=== PATIENT | female | born 1960 | race Caucasian/White ===

== ENCOUNTER 2018-10-02 15:14 | Emergency (ER) | payer SELFPAY ==
[~2018-10-02 15:14] MED LIST: ISOVUE-370 76%-LOCM 1 ML ONE
[2018-10-02 16:01] LABS: Hemoglobin 14.3 g/dL (12.0-16.0); Mean Corpuscular HGB CONC 32.9 g/dL (32.0-36.0); Mean Corpuscular Hemoglobin 31.1 pg (27.0-31.0); Mean Corpuscular Volume 94.5 fL (78.0-98.0); Mean Platelet Volume 7.5 fL (7.4-10.4); Platelet Count 323 thou/uL (130-400); RBC Distribution Width 12.8 % (11.5-14.5); Red Blood Cell (RBC) Count 4.61 mill/uL (4.20-5.40); White Blood Cell (WBC) Count 9.5 thou/uL (4.8-10.8)
[2018-10-02 16:26] LABS: Band 6 % (5-11); Eosinophils 3 % (0-10); Lymphocytes 27 % (21-51); MDiff Complete? YES; Monocytes 3 % (0-10); Neutrophil 61 % (42-75); Platelet Morphology Comment Appears Adequate; RBC Morphology Normal
[2018-10-02 16:27] LABS: ALT (SGPT) 14 U/L (8-55); AST (SGOT) 20 U/L (5-34); Albumin 3.9 g/dL (3.5-5.0); Alkaline Phosphatase 83 U/L (40-150); Anion Gap 15 mmol/L (10-20); BUN (Urea Nitrogen) 5 mg/dL (9.8-20.1); Bilirubin, Total 0.2 mg/dL (0.2-1.2); Calc. Creatinine Clearance 0 mL/min (70-130); Calcium 9.6 mg/dL (7.8-10.44); Carbon Dioxide 26 mmol/L (22-29); Chloride 100 mmol/L (98-107); Estimated GFR-MDRD 75; Globulin 3.4 g/dL (2.4-3.5); Glucose 167 mg/dL (70-105); Potassium 3.5 mmol/L (3.5-5.1); Protein, Total 7.3 g/dL (6.0-8.3); Sodium 137 mmol/L (136-145)
--- NOTE | 2018-10-02 16:40 | RAD ---
Chest one view HISTORY: Pneumonia. Cough. COMPARISON: 08/10/2018. FINDINGS: Cardiac silhouette is magnified and is normal in size. Pulmonary vasculature is unremarkabl e. Mediastinum is midline. No lobar consolidation or evidence of pneumothorax. IMPRESSION: No active cardiopulmonary disease are demonstrated.
[2018-10-02 16:53] LABS: Bilirubin Negative (Negative); Blood, Urine Trace (Negative); Clarity CLOUDY (Clear); Glucose, Urine (Dipstick) Negative (Negative); Leukocyte Negative (Negative); Nitrite Negative (Negative); Protein, Urine (Dipstick) Negative (Neg-Trace); Specific Gravity, Urine 1.009 (1.002-1.036); Urobilinogen 0.2 mg/dL (0.2-1.0); pH, Urine 5.5 (5.0-9.0)
[2018-10-02 17:00] LABS: Bacteria/HPF None Seen HPF (None Seen); Hyaline Casts/LPF 4-6 HYALINE CAST LPF (0-3 Hyaline); Pathc Cast-AUWi Flag 0.95 (0-2.49); RBC/HPF 0-3 HPF (0-3); WBC/HPF 0-3 HPF (0-3)
--- NOTE | 2018-10-02 18:08 | CT ---
CT PULMONARY ANGIOGRAM WITH IV CONTRAST AND 3D POST PROCESSING: History: Tachycardia, nausea, chest pain, elevated D-Dimer. FINDINGS: Comparison made to exam of 08-05-14. There is inadequate opacification of the pulmonary artery vasculature. The thoracic aorta is well opa cified without aneurysm or dissection. No filling defects are seen in the main pulmonary arteries to suggest central pulmonary embolism. The pulmonary artery arterial branches are otherwise not satisfac tory evaluated due to inadequate opacification. No pleural effusions are seen. There are mild reticular nodular infiltrates in the right upper and mi dlung zones and peripherally a patchy consolidation in the lateral segment of the right middle lobe. There are degenerative changes in the spine. Upper abdominal tomograms demonstrate a stable liver cyst and right adrenal adenoma since . IMPRESSION: 1. No evidence of thoracic aortic aneurysm or dissection. 2. Suboptimal opacification of the pulmonary arteries with no definite embolism in the main pulmonary arteries. Peripheral embolism cannot be excluded on this exam. 3. Right lung infiltrates. POS: AGATHA
== END 2018-10-02 19:10 | disposition home or self-care (01) ==
LOC: ERS 15:14
DX: J18.1 Lobar pneumonia, unspecified organism (principal); R00.0 Tachycardia, unspecified; I25.10 Atherosclerotic heart disease of native coronary artery without angina pectoris; E78.5 Hyperlipidemia, unspecified; I10 Essential (primary) hypertension; F17.210 Nicotine dependence, cigarettes, uncomplicated; Z79.899 Other long term (current) drug therapy; Z79.82 Long term (current) use of aspirin
CPT/HCPCS: 71045; 71275; 80053; 81003; 81015; 83605; 83880; 84484; 85025; 85379; 87040; 87804; 93005; 96360; 96361; Q9966

== ENCOUNTER 2019-10-29 10:16 | Outpatient (CLI) | payer OTHER ==
--- NOTE | 2019-10-29 11:04 | RAD ---
PA AND LATERAL CHEST: HISTORY: Cough, reactive airways disease. COMPARISON: 08/10/2018 study. FINDINGS: Heart size and mediastinum are within normal limits. Lungs appear clear of any infiltrative process. IMPRESSION: No active intrathoracic disease. POS: [facility]
== END 2019-10-29 10:17 | disposition home or self-care (01) ==
LOC: BICRAD 10:16
PROVIDERS: ATTEND Internal Medicine
DX: J45.40 Moderate persistent asthma, uncomplicated (principal)
CPT/HCPCS: 71046

== ENCOUNTER 2019-11-08 15:04 | Outpatient (CLI) | payer OTHER ==
--- NOTE | 2019-11-09 08:01 | MMO ---
Bilateral MAMMO Bilat Screen DDI+ANUP. CLINICAL HISTORY: Patient is 59 years old and is seen for screening. The patient has no family history of breast cancer. The patient has no personal history of cancer. VIEWS: The views performed were: bilateral craniocaudal with tomosynthesis and bilateral mediolateral oblique with tomosynthesis. FILMS COMPARED: The present examination has been compared to prior imaging studies performed at [facility] on 08/31/2016, and at [facility] on 05/09/2014 and 05/16/2014. This study has been interpreted with the assistance of computer-aided detection. MAMMOGRAM FINDINGS: There are scattered fibroglandular densities. There are stable benign appearing calcifications seen in both breasts. There are no suspicious masses, suspicious calcifications, or new areas of architectural distortion. IMPRESSION: THERE IS NO MAMMOGRAPHIC EVIDENCE OF MALIGNANCY. A ROUTINE FOLLOW-UP MAMMOGRAM IN 1 YEAR IS RECOMMENDED. THE RESULTS OF THIS EXAM WERE SENT TO THE PATIENT. ACR BI-RADS Category 2 - Benign finding MAMMOGRAPHY NOTE: 1. A negative mammogram report should not delay a biopsy if a dominant of clinically suspicious mass is present. 2. Approximately 10% to 15% of breast cancers are not detected by mammography. 3. Adenosis and dense breasts may obscure an underlying neoplasm. Reported by: BRENT CHAPMAN MD Electonically Signed: [id number]
== END 2019-11-08 15:05 | disposition home or self-care (01) ==
LOC: BICMAMMO 15:04
PROVIDERS: ATTEND Internal Medicine
DX: Z12.31 Encounter for screening mammogram for malignant neoplasm of breast (principal)
CPT/HCPCS: 77063; 77067

== ENCOUNTER 2020-05-09 15:12 | Outpatient (CLI) | payer OTHER ==
--- NOTE | 2020-05-09 15:26 | RAD ---
PA AND LATERAL VIEWS CHEST: HISTORY: Mild persistent asthma, uncomplicated. Shortness of breath. COMPARISON: 04/14/2020. FINDINGS: The heart size is borderline. The lungs are expanded without lobar consolidation, pneumothoraces, or pleural effusions. No acute osseous abnormalities are seen. Chronic parenchymal changes are again seen. The previously noted right lobe infiltrate has resolved in the interim. IMPRESSION: No radiographic evidence of acute cardiopulmonary process. POS: AH
== END 2020-05-09 15:13 | disposition home or self-care (01) ==
LOC: BICRAD 15:12
PROVIDERS: ATTEND Internal Medicine
DX: J45.30 Mild persistent asthma, uncomplicated (principal)
CPT/HCPCS: 71046

== ENCOUNTER 2020-06-11 22:25 | Inpatient (IN) | payer OTHER ==
[2020-06-12 00:43] LABS: SARS-CoV-2 NAA Rapid Test DETECTED (NotDetected)
[2020-06-12] MEDS ORDERED: Albuterol 200 PUFF (6.7GM INHALER) INH PRN (01:05)
--- NOTE | 2020-06-12 01:32 | HP ---
REASON FOR ADMISSION: Shortness of breath. HISTORY OF PRESENT ILLNESS: This is a 60-year-old female patient who is presenting with shortness of breath. History going back to approximately 2 months before her presentation, she tested positive for COVID-19. At that time, she was having shortness of breath and cough and she lost her taste and smell. Also she had diarrhea and moving forward to April 20, she still tested positive. She needed to test negative to go back to her work and on April 30, she tested negative, but was still having symptoms. Her test was considered as a false negative, but then tested negative again the next week and since then, she has been having good days and bad days according to the patient and for the past week and a half, she has been feeling well, back to her baseline until this past weekend she took care of her 2-year-old grandson who had a runny nose and appeared to be a bit sick. She started having a runny nose herself on Tuesday, which is approximately 4 days ago, and then her throat was sore. She did not develop a fever, but she became more and more short of breath and she presents today for that reason. She is also coughing and having headaches. In our emergency room, she was retested for COVID-19 and her test is now positive. PAST MEDICAL HISTORY: 1. COPD. 2. Coronary artery disease, status post stenting. 3. History of PE, on Eliquis. 4. High blood pressure. 5. High cholesterol. SOCIAL HISTORY: She continues to smoke and currently smoking 5 cigarettes a day, but has not smoked for the past 4 days. She cannot drink alcohol due to severe abdominal pain that follows drinking alcohol. ALLERGIES: TO PENICILLIN. FAMILY HISTORY: Her grandfather had heart disease. REVIEW OF SYSTEMS: All systems reviewed and except the above-mentioned shortness of breath, found to be negative. PHYSICAL EXAMINATION: GENERAL: Awake, alert, oriented, does not appear in distress. VITAL SIGNS: Her blood pressure is 120/85, heart rate of 92, saturating 95% on 2 L nasal cannula. HEENT: Head is nontraumatic, normocephalic. Pupils equal, reactive. Extraocular movements are intact. Nonicteric sclerae. Well-injected conjunctivae. Oral mucosa normal. Nasal mucosa normal. NECK: Supple. No adenopathy. No murmur. Thyroid is not palpable. Trachea is midline. No supraclavicular adenopathy. HEART: S1, S2 regular. No murmur. No gallops. No friction rubs. No displacement of PMI. LUNGS: Decreased air entry bilaterally. Diffuse expiratory wheezing bilaterally. ABDOMEN: Bowel sounds are positive. Nontender abdomen. No hepatosplenomegaly. EXTREMITIES: No lower extremity edema. No cyanosis. NEUROLOGIC: Cranial nerves 2-12 within normal limits. Normal motor function. Normal sensory function and reflexes. LABORATORY DATA: Blood work shows WBC of 8.8, hemoglobin 14.2, platelets of 292. Her D-dimer is 1.30. Sodium is 141, potassium 3.8, bicarb 26, BUN of 7, creatinine 0.83. Troponin less than 0.01. COVID-19 positive. IMAGING DATA: A CT of the chest shows no definite central pulmonary embolus demonstrated, limitation of the exam as above. Area of subsegmental volume loss in the lateral right middle lobe. Fatty liver. Left hepatic lobe cyst. Right adrenal adenoma. ASSESSMENT AND PLAN: This is a 60-year-old female patient, presenting with shortness of breath secondary to bronchitis. Underlying cause is most likely reinfection with COVID-19. Pulmonary: Patient will be on IV Solu-Medrol for her COPD exacerbation and this also will help with her comorbid reinfection. Also, she will be on inhalers and will have her on azithromycin as well and a cough suppressant in a.m. We will check ferritin, procalcitonin, CRP levels. For DVT prophylaxis, she will be on her Eliquis. Cardiac: The patient will be on home medication such as Plavix. I am still awaiting for the med rec to be done so I could reconcile it. Job ID: [id number]
[2020-06-12 03:03] VITALS: BMI 47.4
[2020-06-12] MEDS: Albuterol 200 PUFF (6.7GM INHALER) INH SCH ×4 (05:27→23:08)
[2020-06-12] MEDS: methylPREDNISolone Sod Succ 40 MG VIAL IVP SCH ×4 (05:28→23:08)
[2020-06-12] MEDS ORDERED: Promethazine DM 6.25-15mg/5ml 120 ML BOT PO PRN (06:42)
[2020-06-12] MEDS: Rosuvastatin 20 MG TAB PO SCH ×3 (08:53→20:49)
[2020-06-12] MEDS: Ascorbic Acid 500 mg Chewable Tablet PO SCH (08:54)
[2020-06-12] MEDS: Metoprolol Tartrate 25 MG TAB PO SCH ×2 (08:54→20:49)
[2020-06-12] MEDS: Clopidogrel Bisulfate 75 MG TAB PO SCH (08:54)
[2020-06-12] MEDS: Apixaban 5 MG TAB PO SCH ×2 (08:54→20:49)
[2020-06-12] MEDS ORDERED: MAG OX PO SCH (09:00)
[2020-06-12] MEDS ORDERED: CALCIUM CARB PO SCH (09:00)
[2020-06-12] MEDS ORDERED: [UNRECOGNIZED DRUG - OTHER] PO SCH (09:00)
[2020-06-12] MEDS ORDERED: Lisinopril 20 MG TAB PO SCH (09:00)
[2020-06-12] MEDS ORDERED: ZINC SULF PO SCH (09:00)
[2020-06-12] MEDS ORDERED: Lisinopril 10 MG TAB PO SCH ×2 (09:00→13:30)
[2020-06-12] MEDS ORDERED: Non-Formulary Item 1 EACH (Ascorbic Acid [Vitamin C] 1,000 MG Tablet) PO SCH (09:00)
[2020-06-12] MEDS ORDERED: Apixaban 5 MG TAB PO SCH (09:00)
[2020-06-12] MEDS: Acetaminophen 325 MG TAB PO PRN ×3 (09:10→19:24)
[2020-06-12] MEDS ORDERED: hydrALAZINE 20 MG/ML VIAL SLOW IVP PRN (13:19)
--- NOTE | 2020-06-12 13:19 | PDOC.HOSPP ---
- Subjective Encounter Date: 06/12/20 Encounter Time: 10:30 Subjective: Patient seen this morning she still have a productive cough and dyspnea on exertion she is also a little somewhat distressed with her presentation. - Objective Vital Signs & Weight: Vital Signs (12 hours) Temp Pulse Resp BP BP Pulse Ox 06/12/20 12:20 98.1 F 101 H 22 H 167/78 H 94 L 06/12/20 09:07 98 21 H 156/77 H 93 L 06/12/20 03:03 98.0 F 87 20 150/67 H 96 Weight Weight 250 lb 12.8 oz I&O: 06/11/20 06/12/20 06/13/20 06:59 06:59 06:59 Intake Total 490 Balance 490 Hospitalist ROS - Medication Medications: Active Medications Generic Name Dose Route Start Last Admin Trade Name Freq PRN Reason Stop Dose Admin Acetaminophen 650 mg 06/12/20 01:07 06/12/20 09:10 Acetaminophen 325 Mg Tab PO 650 mg Q4H PRN Administration Headache/Fever/Mild Pain (1-3) Albuterol Sulfate 2 puff 06/12/20 06:00 06/12/20 12:06 Albuterol 200 Puff (6.7gm Inhaler) INH 2 puff Q6HR ALIZE Administration Apixaban 5 mg 06/12/20 09:00 06/12/20 08:54 Apixaban 5 Mg Tab PO 5 mg BID ALIZE Administration Ascorbic Acid 1,000 mg 06/12/20 09:00 06/12/20 08:54 Ascorbic Acid 500 Mg Chewable Tablet PO 1,000 mg DAILY ALIZE Administration Clopidogrel Bisulfate 75 mg 06/12/20 09:00 06/12/20 08:54 Clopidogrel Bisulfate 75 Mg Tab PO 75 mg DAILY ALIZE Administration Lisinopril 5 mg 06/12/20 09:00 06/12/20 08:53 Lisinopril 20 Mg Tab PO 5 mg DAILY ALIZE Administration Methylprednisolone Sodium Succinate 40 mg 06/12/20 06:00 06/12/20 12:06 Methylprednisolone Sod Succ 40 Mg Vial IVP 40 mg Q6HR ALIZE Administration Metoprolol Tartrate 25 mg 06/12/20 09:00 06/12/20 08:54 Metoprolol Tartrate 25 Mg Tab PO 25 mg BID ALIZE Administration Pantoprazole Sodium 40 mg 06/12/20 09:00 06/12/20 08:54 Pantoprazole 40 Mg Tab PO 40 mg DAILY ALIZE Administration - Exam General Appearance: NAD, awake alert Eye: PERRL ENT: normocephalic atraumatic Neck: supple Heart: RRR Respiratory: CTAB Neurological: cranial nerve grossly intact, no focal deficits Psychiatric: normal affect, normal behavior, A&O x 3 Hosp A/P - Plan COVID-19 positive test (U07.1, COVID-19) with Acute Pneumonia (J12.89, Other viral pneumonia) (If respiratory failure or sepsis present, add as separate assessment) Hypoxia secondary to Covid pneumonia Bronchitis COPD exacerbation --She is on azithromycin apixaban as well as Solu-Medrol 40 mg every 6 hours. Vitamin C and zinc and inhalers as needed Follow the clinical course Accelerated hypertension secondary to acute stress Patient on lisinopril at very low-dose will increase that as well as the Lopressor. Will add as needed hydralazine as well
[2020-06-12] MEDS: Mometasone 100 MCG/PUFF (1 INHALER) INH SCH (19:17)
[2020-06-12] MEDS: Azithromycin 500 MG in Sodium Chloride 0.9% 250 ML 250 ML IVPB SCH (20:49)
[2020-06-13] MEDS: Acetaminophen 325 MG TAB PO PRN ×4 (04:05→21:17)
[2020-06-13] MEDS: Guaifenesin DM 100-10/5 ML UDCUP PO PRN ×2 (04:05→20:59)
[2020-06-13] MEDS: methylPREDNISolone Sod Succ 40 MG VIAL IVP SCH ×3 (05:04→17:46)
[2020-06-13] MEDS: Albuterol 200 PUFF (6.7GM INHALER) INH SCH ×3 (05:05→17:45)
[2020-06-13] MEDS: Mometasone 100 MCG/PUFF (1 INHALER) INH SCH ×2 (06:17→17:46)
[2020-06-13] MEDS: Metoprolol Tartrate 25 MG TAB PO SCH ×2 (09:47→20:59)
[2020-06-13] MEDS: Apixaban 5 MG TAB PO SCH ×2 (09:47→20:59)
[2020-06-13] MEDS: Ascorbic Acid 500 mg Chewable Tablet PO SCH (09:47)
[2020-06-13] MEDS: Clopidogrel Bisulfate 75 MG TAB PO SCH (09:47)
[2020-06-13] MEDS: Lisinopril 10 MG TAB PO SCH (09:47)
[2020-06-13] MEDS: Zinc Sulfate 220 MG CAP PO SCH (09:47)
--- NOTE | 2020-06-13 13:03 | PDOC.HOSPP ---
- Subjective Encounter Date: 06/13/20 Encounter Time: 11:10 Subjective: Patient is coughing she feels runny nose generalized body ache and tingling numbness all over her body. She also expresses she has a sore throat. She says she has some productive cough. She is wondering her son told to her whether she can get the plasma infusion.. This is second test positive she was infected roughly a month ago. She would not benefit with convalescent plasma at this time. She is also satting over 90% in the room air as well. - Objective Vital Signs & Weight: Vital Signs (12 hours) Temp Pulse Resp BP Pulse Ox 06/13/20 12:30 97.7 F 80 18 137/89 99 06/13/20 07:20 97.4 F L 87 20 120/57 L 98 06/13/20 04:05 97.9 F 78 22 H 136/70 97 Weight Weight 247 lb 12.8 oz I&O: 06/12/20 06/13/20 06/14/20 06:59 06:59 06:59 Intake Total 490 1790 Balance 490 1790 Hospitalist ROS - Medication Medications: Active Medications Generic Name Dose Route Start Last Admin Trade Name Freq PRN Reason Stop Dose Admin Acetaminophen 650 mg 06/12/20 01:07 06/13/20 09:46 Acetaminophen 325 Mg Tab PO 650 mg Q4H PRN Administration Headache/Fever/Mild Pain (1-3) Albuterol Sulfate 2 puff 06/12/20 06:00 06/13/20 12:54 Albuterol 200 Puff (6.7gm Inhaler) INH 2 puff Q6HR ALIZE Administration Apixaban 5 mg 06/12/20 09:00 06/13/20 09:47 Apixaban 5 Mg Tab PO 5 mg BID ALIZE Administration Ascorbic Acid 1,000 mg 06/12/20 09:00 06/13/20 09:47 Ascorbic Acid 500 Mg Chewable Tablet PO 1,000 mg DAILY ALIZE Administration Clopidogrel Bisulfate 75 mg 06/12/20 09:00 06/13/20 09:47 Clopidogrel Bisulfate 75 Mg Tab PO 75 mg DAILY ALIZE Administration Guaifenesin/Dextromethorphan 10 ml 06/12/20 01:07 06/13/20 04:05 Guaifenesin Dm 100-10/5 Ml Udcup PO 10 ml Q4H PRN Administration Cough Azithromycin 500 mg/ Sodium 250 mls @ 250 mls/hr 06/12/20 21:00 06/12/20 20:49 Chloride IVPB 250 mls 2100 ALIZE Administration Lisinopril 10 mg 06/13/20 09:00 06/13/20 09:47 Lisinopril 10 Mg Tab PO 10 mg DAILY ALIZE Administration Methylprednisolone Sodium Succinate 40 mg 06/12/20 06:00 06/13/20 12:56 Methylprednisolone Sod Succ 40 Mg Vial IVP 40 mg Q6HR ALIZE Administration Metoprolol Tartrate 25 mg 06/12/20 09:00 06/13/20 09:47 Metoprolol Tartrate 25 Mg Tab PO 25 mg BID ALIZE Administration Mometasone Furoate 200 mcg 06/12/20 18:30 06/13/20 06:17 Mometasone 100 Mcg/Puff (1 Inhaler) INH 1 puff BID-RT ALIZE Administration Pantoprazole Sodium 40 mg 06/12/20 09:00 06/13/20 09:47 Pantoprazole 40 Mg Tab PO 40 mg DAILY ALIZE Administration Rosuvastatin Calcium 20 mg 06/12/20 21:00 06/12/20 20:49 Rosuvastatin 20 Mg Tab PO 20 mg HS ALIZE Administration Zinc Sulfate 220 mg 06/13/20 09:00 06/13/20 09:47 Zinc Sulfate 220 Mg Cap PO 220 mg DAILY ALIZE Administration - Exam General Appearance: NAD, awake alert Eye: PERRL ENT: normocephalic atraumatic Neck: supple Neurological: cranial nerve grossly intact, no focal deficits Musculoskeletal: normal tone Psychiatric: normal affect, normal behavior, A&O x 3 Hosp A/P - Plan COVID-19 positive test (U07.1, COVID-19) with Acute Pneumonia (J12.89, Other viral pneumonia) (If respiratory failure or sepsis present, add as separate assessment) Hypoxia secondary to Covid pneumonia Bronchitis COPD exacerbation --She is on azithromycin apixaban as well as Solu-Medrol 40 mg every 6 hours. Vitamin C and zinc and inhalers as needed Follow the clinical course Accelerated hypertension secondary to acute stress Patient on lisinopril at very low-dose will increase that as well as the Lopressor. Will add as needed hydralazine as well. Continue the above management once she is clinically better plan to discharge her in more 1 to 2 days.
[2020-06-13] MEDS: Azithromycin 500 MG in Sodium Chloride 0.9% 250 ML 250 ML IVPB SCH (20:59)
[2020-06-13] MEDS: Rosuvastatin 20 MG TAB PO SCH (20:59)
[2020-06-14] MEDS: methylPREDNISolone Sod Succ 40 MG VIAL IVP SCH ×3 (00:28→19:22)
[2020-06-14] MEDS: Albuterol 200 PUFF (6.7GM INHALER) INH SCH ×4 (00:28→18:57)
[2020-06-14] MEDS: Acetaminophen 325 MG TAB PO PRN ×3 (06:51→20:46)
[2020-06-14] MEDS: Guaifenesin DM 100-10/5 ML UDCUP PO PRN ×2 (06:51→13:17)
[2020-06-14] MEDS: Mometasone 100 MCG/PUFF (1 INHALER) INH SCH ×2 (06:52→19:03)
[2020-06-14] MEDS: Apixaban 5 MG TAB PO SCH ×2 (09:03→20:46)
[2020-06-14] MEDS: Ascorbic Acid 500 mg Chewable Tablet PO SCH (09:03)
[2020-06-14] MEDS: Clopidogrel Bisulfate 75 MG TAB PO SCH (09:04)
[2020-06-14] MEDS: Lisinopril 10 MG TAB PO SCH (09:04)
[2020-06-14] MEDS: Metoprolol Tartrate 25 MG TAB PO SCH ×2 (09:04→20:46)
[2020-06-14] MEDS: Zinc Sulfate 220 MG CAP PO SCH (09:05)
--- NOTE | 2020-06-14 18:33 | PDOC.HOSPP ---
- Subjective Encounter Date: 06/14/20 Encounter Time: 16:00 Subjective: F/u: COVID The patient still has some fatigue while ambulating and has a dry cough. She tested positive for COVID on April 14, then had two negative tests at [facility] and [facility] on 05/06. She then had rhinorrhea last Tuesday and severe back pain and tested positive again I discussed adding mucinex, she states it makes her urine smell very bed and is worried that others may be able to smell it on her, but was agreeable to ordering it anyways - Objective Vital Signs & Weight: Vital Signs (12 hours) Temp Pulse Resp BP BP Pulse Ox 06/14/20 15:55 97.8 F 68 18 133/60 100 06/14/20 12:34 97.8 F 65 20 136/80 100 06/14/20 07:20 97.7 F 75 18 137/72 99 Weight Weight 251 lb 9.6 oz I&O: 06/13/20 06/14/20 06/15/20 06:59 06:59 06:59 Intake Total 1790 862 Balance 1790 862 Hospitalist ROS - Review of Systems Constitutional: denies: fever, chills - Medication Medications: Active Medications Generic Name Dose Route Start Last Admin Trade Name Freq PRN Reason Stop Dose Admin Acetaminophen 650 mg 06/12/20 01:07 06/14/20 13:16 Acetaminophen 325 Mg Tab PO 650 mg Q4H PRN Administration Headache/Fever/Mild Pain (1-3) Albuterol Sulfate 2 puff 06/12/20 06:00 06/14/20 13:17 Albuterol 200 Puff (6.7gm Inhaler) INH 2 puff Q6HR ALIZE Administration Apixaban 5 mg 06/12/20 09:00 06/14/20 09:03 Apixaban 5 Mg Tab PO 5 mg BID ALIZE Administration Ascorbic Acid 1,000 mg 06/12/20 09:00 06/14/20 09:03 Ascorbic Acid 500 Mg Chewable Tablet PO 1,000 mg DAILY ALIZE Administration Clopidogrel Bisulfate 75 mg 06/12/20 09:00 06/14/20 09:04 Clopidogrel Bisulfate 75 Mg Tab PO 75 mg DAILY ALZIE Administration Guaifenesin/Dextromethorphan 10 ml 06/12/20 01:07 06/14/20 13:17 Guaifenesin Dm 100-10/5 Ml Udcup PO 10 ml Q4H PRN Administration Cough Azithromycin 500 mg/ Sodium 250 mls @ 250 mls/hr 06/12/20 21:00 06/13/20 20:59 Chloride IVPB 250 mls 2100 ALIZE Administration Lisinopril 10 mg 06/13/20 09:00 06/14/20 09:04 Lisinopril 10 Mg Tab PO 10 mg DAILY ALIZE Administration Metoprolol Tartrate 25 mg 06/12/20 09:00 06/14/20 09:04 Metoprolol Tartrate 25 Mg Tab PO 25 mg BID ALIZE Administration Mometasone Furoate 200 mcg 06/12/20 18:30 06/14/20 06:52 Mometasone 100 Mcg/Puff (1 Inhaler) INH 1 puff BID-RT AILZE Administration Pantoprazole Sodium 40 mg 06/12/20 09:00 06/14/20 09:04 Pantoprazole 40 Mg Tab PO 40 mg DAILY ALIZE Administration Rosuvastatin Calcium 20 mg 06/12/20 21:00 06/13/20 20:59 Rosuvastatin 20 Mg Tab PO 20 mg HS ALIZE Administration Zinc Sulfate 220 mg 06/13/20 09:00 06/14/20 09:05 Zinc Sulfate 220 Mg Cap PO 220 mg DAILY ALIZE Administration - Exam General Appearance: NAD, awake alert Eye: PERRL, anicteric sclera ENT: normocephalic atraumatic, no oropharyngeal lesions Neck: no JVD Heart: RRR, no murmur, no gallops, no rubs Respiratory: no rales, no ronchi Respiratory - other findings: bilateral wheezing Gastrointestinal: soft, non-tender, non-distended, normal bowel sounds Extremities: no cyanosis, no clubbing, no edema Skin: normal turgor, no lesions, no rashes Neurological: cranial nerve grossly intact, normal sensation to touch, no weakness Hosp A/P - Plan CTA chest 06/11: no PE, fatty liver, left hepatic lobe cyst, right adrenal adenoma This is a 54 year old female with bipolar, schizophrenia, who presented to the ER with runny nose, severe back pain, fever and tested positive for COVID. Chest X ray showed pulmonary engorgement Acute hypoxic respiratory failure possibly from COVId vs COPD exacerbation -CTA chest showed no PE - continue IV steroids, asthmanex bid. Will add mucinex - will place on airborne isolation since this could be new infection, most recent positive test was 05/12 Right adrenal adenoma - outpatient follow up Left hepatic lobe cyst - noted on CT scan, outpatient follow up Tobacco abuse - continue nicotine patch Bipolar Schizophrenia - continue depakote
[2020-06-14] MEDS ORDERED: guaiFENesin ER 600 MG TAB PO SCH (20:00)
[2020-06-14] MEDS: Azithromycin 250 MG TAB PO SCH (20:46)
[2020-06-14] MEDS: Rosuvastatin 20 MG TAB PO SCH (20:46)
[2020-06-15] MEDS: methylPREDNISolone Sod Succ 40 MG VIAL IVP SCH ×4 (00:02→17:53)
[2020-06-15] MEDS: Albuterol 200 PUFF (6.7GM INHALER) INH SCH ×4 (00:02→17:50)
[2020-06-15] MEDS: Mometasone 100 MCG/PUFF (1 INHALER) INH SCH ×2 (05:54→17:49)
[2020-06-15] MEDS: guaiFENesin ER 600 MG TAB PO SCH ×2 (09:44→20:20)
[2020-06-15] MEDS: Ascorbic Acid 500 mg Chewable Tablet PO SCH (09:44)
[2020-06-15] MEDS: Acetaminophen 325 MG TAB PO PRN (09:45)
[2020-06-15] MEDS: Lisinopril 10 MG TAB PO SCH (09:45)
[2020-06-15] MEDS: Zinc Sulfate 220 MG CAP PO SCH (09:45)
[2020-06-15] MEDS: Apixaban 5 MG TAB PO SCH ×2 (09:45→20:20)
[2020-06-15] MEDS: Clopidogrel Bisulfate 75 MG TAB PO SCH (09:45)
[2020-06-15] MEDS: Metoprolol Tartrate 25 MG TAB PO SCH ×2 (09:45→20:20)
[2020-06-15 12:09] LABS: Hemoglobin 14.1 g/dL (12.0-16.0); Hemoglobin A1c 5.5 % (4.0-6.0); Mean Corpuscular HGB CONC 33.7 g/dL (32.0-36.0); Mean Corpuscular Hemoglobin 31.3 pg (27.0-31.0); Mean Corpuscular Volume 92.7 fL (78.0-98.0); Mean Platelet Volume 7.1 fL (7.4-10.4); Platelet Count 331 thou/uL (130-400); RBC Distribution Width 12.9 % (11.5-14.5); White Blood Cell (WBC) Count 8.8 thou/uL (4.8-10.8)
[2020-06-15 12:23] LABS: Anion Gap 15 mmol/L (10-20); BUN (Urea Nitrogen) 18 mg/dL (9.8-20.1); Calc. Creatinine Clearance 156 mL/min (70-130); Calcium 9.1 mg/dL (7.8-10.44); Carbon Dioxide 29 mmol/L (22-29); Chloride 100 mmol/L (98-107); Glucose 155 mg/dL (70-105); Potassium 3.8 mmol/L (3.5-5.1); Sodium 140 mmol/L (136-145)
[2020-06-15] MEDS: Azithromycin 250 MG TAB PO SCH (20:20)
[2020-06-15] MEDS: Rosuvastatin 20 MG TAB PO SCH (20:20)
[2020-06-15] MEDS: Gabapentin 100 MG CAP PO PRN (20:30)
--- NOTE | 2020-06-15 22:44 | PDOC.HOSPP ---
- Subjective Encounter Date: 06/15/20 Encounter Time: 12:00 Subjective: F/u: COVID COVID - patient still has dry cough which has improved. She says when she ambulated her oxygen sat dropped to 84% after coming back from the bathroom but recovered shortly Neuropathy - patient still complains of a mildly painful tingling sensation in her toes and hands. She has no history of diabetes but was very concerned that she may have it and wants to get checked. She is requesting gabapentin - Objective Vital Signs & Weight: Vital Signs (12 hours) Temp Pulse Resp BP Pulse Ox 06/15/20 19:30 98.5 F 76 20 133/68 97 Weight Weight 251 lb 9.6 oz I&O: 06/14/20 06/15/20 06/16/20 06:59 06:59 06:59 Intake Total 862 860 Balance 862 860 Result Diagrams: 06/15/20 11:50 06/15/20 11:50 Additional Labs: Accuchecks 06/15/20 06/15/20 20:25 11:49 POC Glucose 163 H 159 H Hospitalist ROS - Review of Systems Constitutional: reports: chills. denies: fever - Medication Medications: Active Medications Generic Name Dose Route Start Last Admin Trade Name Freq PRN Reason Stop Dose Admin Acetaminophen 650 mg 06/12/20 01:07 06/15/20 09:45 Acetaminophen 325 Mg Tab PO 650 mg Q4H PRN Administration Headache/Fever/Mild Pain (1-3) Albuterol Sulfate 2 puff 06/12/20 06:00 06/15/20 17:50 Albuterol 200 Puff (6.7gm Inhaler) INH 2 puff Q6HR ALIZE Administration Apixaban 5 mg 06/12/20 09:00 06/15/20 20:20 Apixaban 5 Mg Tab PO 5 mg BID ALIZE Administration Ascorbic Acid 1,000 mg 06/12/20 09:00 06/15/20 09:44 Ascorbic Acid 500 Mg Chewable Tablet PO 1,000 mg DAILY ALIZE Administration Azithromycin 250 mg 06/14/20 21:00 06/15/20 20:20 Azithromycin 250 Mg Tab PO 06/17/20 21:01 250 mg HS ALIZE Administration Clopidogrel Bisulfate 75 mg 06/12/20 09:00 06/15/20 09:45 Clopidogrel Bisulfate 75 Mg Tab PO 75 mg DAILY ALIZE Administration Gabapentin 100 mg 06/15/20 11:35 06/15/20 20:30 Gabapentin 100 Mg Cap PO 100 mg TID PRN Administration Neuropathy Pain Guaifenesin 600 mg 06/15/20 09:00 06/15/20 20:20 Guaifenesin Er 600 Mg Tab PO 600 mg Q12HR ALIZE Administration Guaifenesin/Dextromethorphan 10 ml 06/12/20 01:07 06/14/20 13:17 Guaifenesin Dm 100-10/5 Ml Udcup PO 10 ml Q4H PRN Administration Cough Lisinopril 10 mg 06/13/20 09:00 06/15/20 09:45 Lisinopril 10 Mg Tab PO 10 mg DAILY ALIZE Administration Methylprednisolone Sodium Succinate 40 mg 06/14/20 18:00 06/15/20 17:53 Methylprednisolone Sod Succ 40 Mg Vial IVP Not Given Q6HR ALIZE Metoprolol Tartrate 25 mg 06/12/20 09:00 06/15/20 20:20 Metoprolol Tartrate 25 Mg Tab PO 25 mg BID ALIZE Administration Mometasone Furoate 200 mcg 06/12/20 18:30 06/15/20 17:49 Mometasone 100 Mcg/Puff (1 Inhaler) INH 1 puff BID-RT ALIZE Administration Pantoprazole Sodium 40 mg 06/12/20 09:00 06/15/20 09:45 Pantoprazole 40 Mg Tab PO 40 mg DAILY ALIZE Administration Rosuvastatin Calcium 20 mg 06/12/20 21:00 06/15/20 20:20 Rosuvastatin 20 Mg Tab PO 20 mg HS ALIZE Administration Zinc Sulfate 220 mg 06/13/20 09:00 06/15/20 09:45 Zinc Sulfate 220 Mg Cap PO 220 mg DAILY ALIZE Administration - Exam General Appearance: NAD, awake alert Eye: PERRL, anicteric sclera ENT: normocephalic atraumatic, no oropharyngeal lesions Neck: no JVD Heart: RRR, no murmur, no gallops, no rubs Respiratory - other findings: mild crackles at the upper part of the lungs Gastrointestinal: soft, non-tender, non-distended, normal bowel sounds Extremities: no cyanosis, no clubbing, no edema Skin: normal turgor, no lesions, no rashes Neurological: cranial nerve grossly intact, normal sensation to touch, no weakness Hosp A/P - Plan CTA chest 06/11: no PE, fatty liver, left hepatic lobe cyst, right adrenal adeno ma This is a 54 year old female with bipolar, schizophrenia, who presented to the ER with runny nose, severe back pain, fever and tested positive for COVID. Chest X ray showed pulmonary engorgement Acute hypoxic respiratory failure possibly from COVId vs COPD exacerbation -CTA chest showed no PE - continue IV steroids, asthmanex bid. Continue mucinex - anticipate can probably go on oral steroids tomorrow. Re-evaluate need for oxygen on discharge tomorrow, especially on exertion Peripheral neuropathy - A1C 5.5, TSH low, check free T4 - add RPR and vitamin B12 in the am - ordered gabapentin tid prn Right adrenal adenoma - outpatient follow up Left hepatic lobe cyst - noted on CT scan, outpatient follow up Tobacco abuse - continue nicotine patch Bipolar Schizophrenia - continue depakote
[2020-06-16] MEDS: methylPREDNISolone Sod Succ 40 MG VIAL IVP SCH ×3 (00:08→13:53)
[2020-06-16] MEDS: Albuterol 200 PUFF (6.7GM INHALER) INH SCH ×4 (00:09→17:32)
[2020-06-16] MEDS: Mometasone 100 MCG/PUFF (1 INHALER) INH SCH ×2 (05:31→17:31)
[2020-06-16 05:35] LABS: Syphilis Antibody Nonreactive (Nonreactive); Syphilis Antibody Index 0.02 S/CO (<1.00 Non-Reactive)
[2020-06-16] MEDS: guaiFENesin ER 600 MG TAB PO SCH ×2 (10:45→19:58)
[2020-06-16] MEDS: Clopidogrel Bisulfate 75 MG TAB PO SCH (10:45)
[2020-06-16] MEDS: Apixaban 5 MG TAB PO SCH ×2 (10:45→19:58)
[2020-06-16] MEDS: Lisinopril 10 MG TAB PO SCH (10:46)
[2020-06-16] MEDS: Zinc Sulfate 220 MG CAP PO SCH (10:46)
[2020-06-16] MEDS: Metoprolol Tartrate 25 MG TAB PO SCH ×2 (10:46→19:58)
[2020-06-16] MEDS: Acetaminophen 325 MG TAB PO PRN ×2 (10:47→20:22)
[2020-06-16] MEDS: Ascorbic Acid 500 mg Chewable Tablet PO SCH (10:53)
--- NOTE | 2020-06-16 17:05 | PDOC.HOSPP ---
- Subjective Encounter Date: 06/16/20 Encounter Time: 09:30 Subjective: F/u: COVID The patient's oxygen level still drops to 82% on exertion. The patient still coughs if she takes a deep breath , but it has improved. Tried to set her up with home oxygen today, however they were unable to deliver it this morning. She stated she could borrow her mother's portable oxygen. She states the manag ement of oxygen concentrator is rechargeable with a battery and her sister can refill it as needed She says her neuropathy is starting to resolve and she barely feels it now. I explained to her that she doesn't have diabetes and she was relieved. - Objective Vital Signs & Weight: Weight Weight 251 lb 9.6 oz I&O: 06/15/20 06/16/20 06/17/20 06:59 06:59 06:59 Intake Total 860 360 Balance 860 360 Result Diagrams: 06/15/20 11:50 06/15/20 11:50 Additional Labs: Accuchecks 06/16/20 06/15/20 05:33 20:25 POC Glucose 120 H 163 H Hospitalist ROS - Review of Systems Constitutional: denies: fever, chills - Medication Medications: Active Medications Generic Name Dose Route Start Last Admin Trade Name Freq PRN Reason Stop Dose Admin Acetaminophen 650 mg 06/12/20 01:07 06/16/20 10:47 Acetaminophen 325 Mg Tab PO 650 mg Q4H PRN Administration Headache/Fever/Mild Pain (1-3) Albuterol Sulfate 2 puff 06/12/20 06:00 06/16/20 12:00 Albuterol 200 Puff (6.7gm Inhaler) INH 2 puff Q6HR ALIZE Administration Apixaban 5 mg 06/12/20 09:00 06/16/20 10:45 Apixaban 5 Mg Tab PO 5 mg BID ALIZE Administration Ascorbic Acid 1,000 mg 06/12/20 09:00 06/16/20 10:53 Ascorbic Acid 500 Mg Chewable Tablet PO 1,000 mg DAILY ALIZE Administration Azithromycin 250 mg 06/14/20 21:00 06/15/20 20:20 Azithromycin 250 Mg Tab PO 06/17/20 21:01 250 mg HS ALIZE Administration Clopidogrel Bisulfate 75 mg 06/12/20 09:00 06/16/20 10:45 Clopidogrel Bisulfate 75 Mg Tab PO 75 mg DAILY ALIZE Administration Gabapentin 100 mg 06/15/20 11:35 06/15/20 20:30 Gabapentin 100 Mg Cap PO 100 mg TID PRN Administration Neuropathy Pain Guaifenesin 600 mg 06/15/20 09:00 06/16/20 10:45 Guaifenesin Er 600 Mg Tab PO 600 mg Q12HR ALIZE Administration Guaifenesin/Dextromethorphan 10 ml 06/12/20 01:07 06/14/20 13:17 Guaifenesin Dm 100-10/5 Ml Udcup PO 10 ml Q4H PRN Administration Cough Lisinopril 10 mg 06/13/20 09:00 06/16/20 10:46 Lisinopril 10 Mg Tab PO 10 mg DAILY ALIZE Administration Methylprednisolone Sodium Succinate 40 mg 06/14/20 18:00 06/16/20 13:53 Methylprednisolone Sod Succ 40 Mg Vial IVP 40 mg Q6HR ALIZE Administration Metoprolol Tartrate 25 mg 06/12/20 09:00 06/16/20 10:46 Metoprolol Tartrate 25 Mg Tab PO 25 mg BID ALIZE Administration Mometasone Furoate 200 mcg 06/12/20 18:30 06/16/20 05:31 Mometasone 100 Mcg/Puff (1 Inhaler) INH 1 puff BID-RT ALIZE Administration Pantoprazole Sodium 40 mg 06/12/20 09:00 06/16/20 10:46 Pantoprazole 40 Mg Tab PO 40 mg DAILY ALIZE Administration Rosuvastatin Calcium 20 mg 06/12/20 21:00 06/15/20 20:20 Rosuvastatin 20 Mg Tab PO 20 mg HS ALIZE Administration Zinc Sulfate 220 mg 06/13/20 09:00 06/16/20 10:46 Zinc Sulfate 220 Mg Cap PO 220 mg DAILY ALIZE Administration - Exam General Appearance: NAD, awake alert General - other findings: morbidly obese Eye: PERRL, anicteric sclera ENT: normocephalic atraumatic, no oropharyngeal lesions Neck: no JVD Heart: RRR, no murmur, no gallops, no rubs Respiratory: no ronchi Respiratory - other findings: mild wheezing in the upper lobes Gastrointestinal: soft, non-tender, non-distended, normal bowel sounds Extremities: no cyanosis, no clubbing, no edema Skin: normal turgor, no lesions, no rashes Neurological: cranial nerve grossly intact, normal sensation to touch, no weakness Hosp A/P - Plan CTA chest 06/11: no PE, fatty liver, left hepatic lobe cyst, right adrenal adenoma This is a 54 year old female with bipolar, schizophrenia, who presented to the ER with runny nose, severe back pain, fever and tested positive for COVID. Chest X ray showed pulmonary engorgement Acute hypoxic respiratory failure possibly from COVId vs COPD exacerbation -CTA chest showed no PE - will taper steroids to oral prednisone. Continue azithromycin until tomorow - continue asthamanex bid - patient will be set up with home oxygen 2L on exertion tomorrow Peripheral neuropathy - A1C 5.5, TSH low, free T4 normal -RPR negative and vitamin B12 370. Folate pending -Continue gabapentin 3 times daily as needed Right adrenal adenoma - outpatient follow up Left hepatic lobe cyst - noted on CT scan, outpatient follow up Tobacco abuse - continue nicotine patch Bipolar Schizophrenia - continue depakote
[2020-06-16] MEDS: Azithromycin 250 MG TAB PO SCH (19:58)
[2020-06-16] MEDS: Rosuvastatin 20 MG TAB PO SCH (19:58)
[2020-06-16] MEDS: Gabapentin 100 MG CAP PO PRN (20:21)
[2020-06-17] MEDS: Albuterol 200 PUFF (6.7GM INHALER) INH SCH ×2 (00:48→05:50)
[2020-06-17] MEDS: Mometasone 100 MCG/PUFF (1 INHALER) INH SCH (05:49)
[2020-06-17 06:13] VITALS: BP 134/73; TEMP 97.6
[2020-06-17] MEDS ORDERED: predniSONE 20 MG TAB PO SCH (08:00)
--- NOTE | 2020-06-17 10:53 | PDOC.DS.DS ---
Provider - Provider Date of Admission: 06/13/20 16:27 Date of Discharge: 06/23/20 Admitting Provider: Eun Lobato MD Consultations: Pulmonary Primary Care Physician: Wu Barron MD Course - Hospital Course Hospital Course: Brief HPI: This is a 61 year old female who presented to the ER with rhinorrhea and diarrhea. SHe had had COVID in March and subsequently had two negative tests but woke up on 06/07 with diaphoresis and feverish feeling. On Tuesday she started feeling short of breath so she came to the ER. When she presented to the ER, she was found to desaturate standing up and have orthostatic hypotension so she was admitted here for further workup: Hospital Course: Acute hypoxic respiratory failure possibly from COVId vs COPD exacerbation: the patient had a CTA chest on admission that showed no PE or no pneumonia. She was admitted for COPD exacerbation and respiratory failure. She was started on duonebs and IV solumedrol due to significant wheezing as well as asthmanex bid. SHe received mucinex as well which significantly cleared up her cough. She still had some mild dyspnea on exertion on the day of discharge but her wheezing was minimal and her cough had significantly improved. SHe was set up with 2L of oxygen because she desaturated to 82% on exertion. She will be discharged with prednisone for five days and an additional day of azithromycin to complete a five day course. Peripheral neuropathy: the patient complained of burning in her fingers and toes. A1C 5.5, TSH low, free T4 normal, RPR negative and vitamin B12 was 370. Her symptoms were resolving by the time of discharge. She was sent a prescription for gabapentin tid as needed. Her neuropathy may have been from COVID? Recommend outpatient follow up as needed Right adrenal adenoma: outpatient follow up Left hepatic lobe cyst: noted on CT scan, outpatient follow up Tobacco abuse: continue nicotine patch Bipolar Schizophrenia: continue depakote Pertinent Studies: CTA chest 06/11: no PE, fatty liver, left hepatic lobe cyst, right adrenal adenoma, no consolidation Chest X ray 06/11: no acute abnormalities Resuscitation Status: 06/12/20 01:07 Resuscitation Status Routine Resuscitation Status: FULL: Full Resuscitation - Labs Lab Results: 06/15/20 11:50 06/15/20 11:50 Abnormal Lab Results - Last 48 hrs 06/15/20 11:50: TSH 3rd Generation 0.1230 L 06/15/20 11:50: MCH 31.3 H, MPV 7.1 L - Physical Exam Vitals: Vital Signs (12 hours) Temp Pulse Resp BP Pulse Ox 06/17/20 06:12 97.6 F 74 19 134/73 99 06/17/20 04:00 97.7 F 70 18 149/68 H 100 Weight Weight 251 lb 9.6 oz Physical Exam: The patient was seen and examined on the day of discharge. Please refer to progress note on day of discharge for physical exam Plan - Discharge Medications Prescriptions: Gabapentin [Neurontin] 100 mg PO TID PRN #90 cap PRN Reason: Neuropathy Pain predniSONE 40 mg PO QAM-WM #10 tab Benzonatate [Tessalon] 100 mg PO TID PRN #28 cap PRN Reason: Cough Azithromycin [Zithromax] 250 mg PO HS #1 tab Home Medications: Medication Instructions Recorded Confirmed Type Metoprolol Tartrate 25 mg PO BID #60 tablet 08/07/16 06/12/20 Rx Budesonide [Pulmicort Neb Solution] 0.5 mg INH BID #1 inhaler 08/12/18 06/12/20 Rx Acetaminophen [Tylenol Regular 650 mg PO Q4H PRN 06/12/20 06/12/20 History Strength] Albuterol Sulfate [Albuterol 2.5 mg NEB Q6H PRN 06/12/20 06/12/20 History Sulfate Neb] Apixaban [Eliquis] 5 mg PO BID 06/12/20 06/12/20 History Ascorbic Acid [Vitamin C] 1,000 mg PO DAILY 06/12/20 06/12/20 History Calcium Carb/Mag Ox/Zinc Sulf [Hm 1 each PO DAILY 06/12/20 06/12/20 History [id number] Cplt] Clopidogrel Bisulfate [Clopidogrel] 75 mg PO DAILY 06/12/20 06/12/20 History Lisinopril 5 mg PO DAILY 06/12/20 06/12/20 History Pantoprazole [Protonix] 40 mg PO DAILY 06/12/20 06/12/20 History Potassium Gluconate 99 mg PO DAILY 06/12/20 06/12/20 History Promethazine/Dextromethorphan 5 ml PO Q6HR PRN 06/12/20 06/12/20 History [Promethazine DM Syrup] Rosuvastatin [Crestor] 20 mg PO DAILY 06/12/20 06/12/20 History Ubidecarenone [CoQ-10] 200 mg PO DAILY 06/12/20 06/12/20 History Azithromycin [Zithromax] 250 mg PO HS #1 tab 06/16/20 Rx Benzonatate [Tessalon] 100 mg PO TID PRN #28 cap 06/16/20 Rx Gabapentin [Neurontin] 100 mg PO TID PRN #90 cap 06/16/20 Rx predniSONE 40 mg PO QAM-WM #10 tab 06/16/20 Rx Allergies: Penicillins Allergy (Verified 06/12/20 03:26) PER E.R. PT. SUMMARY REPORT - Discharge Instructions Discharge Instructions:: You were diagnosed with COVID 19 infection. You had no pneumonia. You completed four days of azithromycin, please take one more day. Take steroids 40 mg for five days for your COPD exacerbation. You can come off isolation tomorrow , but if you want to be extra safe, then quarantine until this Tuesday. Wear a mask while in the house if you are coughing. Your CTA of your chest showed a fatty liver and left hepatic lobe cyst and a right adrenal adenoma. Please try to lose weight. Follow this up further as an outpatient. For your neuropathy, you will be prescribe gabapentin three times daily as needed. You tested negative for diabetes, hypothyroidism and syphilis. Your vitamin B12 levels were normal. Activity:: Activity as Tolerated Nourishment:: Heart Healthy Diet - Follow up Plan Referrals: Wu Barron MD [Primary Care Provider] - Disposition: HOME Quality - Care Measures CORE MEASURES:: N/A
== END 2020-06-17 07:04 | disposition home or self-care (01) | DRG 177 ==
LOC: ERS 22:25 → 2SW 23:45 → OBSVTOIN 06-13 16:27
PROVIDERS: ADMIT Internal Medicine; ATTEND Internal Medicine
PROC: 8E0ZXY6 Isolation (ICD-10-PCS; principal; 2020-06-13)
DX: U07.1 COVID-19 (principal); J12.89 Other viral pneumonia; J96.01 Acute respiratory failure with hypoxia; J44.1 Chronic obstructive pulmonary disease with (acute) exacerbation; J44.0 Chronic obstructive pulmonary disease with (acute) lower respiratory infection; E78.5 Hyperlipidemia, unspecified; I10 Essential (primary) hypertension; F17.210 Nicotine dependence, cigarettes, uncomplicated; I95.1 Orthostatic hypotension; I25.10 Atherosclerotic heart disease of native coronary artery without angina pectoris; D35.01 Benign neoplasm of right adrenal gland; K76.89 Other specified diseases of liver; F31.9 Bipolar disorder, unspecified; F20.9 Schizophrenia, unspecified; G62.9 Polyneuropathy, unspecified; Z88.0 Allergy status to penicillin; Z79.51 Long term (current) use of inhaled steroids; Z86.711 Personal history of pulmonary embolism; Z95.5 Presence of coronary angioplasty implant and graft; Z90.49 Acquired absence of other specified parts of digestive tract; Z90.710 Acquired absence of both cervix and uterus; Z98.49 Cataract extraction status, unspecified eye; Z79.899 Other long term (current) drug therapy; Z79.01 Long term (current) use of anticoagulants; Z79.84 Long term (current) use of oral hypoglycemic drugs; Z82.49 Family history of ischemic heart disease and other diseases of the circulatory system
CPT/HCPCS: 0240U; 36415; 36416; 80048; 82607; 83036; 84439; 84443; 85027; 86780; 96374; 96376; 99285; G0378; J0456; J2920; J7050

== ENCOUNTER 2020-12-06 14:40 | Emergency (ER) | payer OTHER ==
[~2020-12-06 14:40] MED LIST changes: -ISOVUE-370 76%-LOCM 1 ML ONE; +Iopamidol-370 76% 500 ML 1 ML ONE
[2020-12-06 15:40] LABS: #Eosinphils 0.1 thou/uL (0.0-0.7); #Lymphocytes 1.7 thou/uL (1.20-3.40); #Monocytes 0.4 thou/uL (0.11-0.59); #Neutrophils 3.4 thou/uL (1.40-6.50); %Basophils 0.4 % (0.0-1.0); %Eosinophils 1.4 % (0.0-10.0); %Lymphocytes 29.9 % (21.0-51.0); %Monocytes 6.9 % (0.0-10.0); %Neutrophils 61.4 % (42.0-75.0); Hemoglobin 14.8 g/dL (12.0-16.0); Mean Corpuscular HGB CONC 32.1 g/dL (32.0-36.0); Mean Corpuscular Hemoglobin 29.1 pg (27.0-31.0); Mean Corpuscular Volume 90.5 fL (78.0-98.0); Mean Platelet Volume 7.1 fL (7.4-10.4); Platelet Count 283 thou/uL (130-400); Red Blood Cell (RBC) Count 5.08 mill/uL (4.20-5.40); White Blood Cell (WBC) Count 5.5 thou/uL (4.8-10.8)
[2020-12-06 16:03] LABS: ALT (SGPT) 18 U/L (8-55); AST (SGOT) 19 U/L (5-34); Albumin 4.3 g/dL (3.5-5.0); Alkaline Phosphatase 81 U/L (40-110); Anion Gap 18 mmol/L (10-20); BUN (Urea Nitrogen) 10 mg/dL (9.8-20.1); Bilirubin, Total 0.3 mg/dL (0.2-1.2); Calc. Creatinine Clearance 0 mL/min (70-130); Calcium 9.1 mg/dL (7.8-10.44); Carbon Dioxide 24 mmol/L (22-29); Chloride 102 mmol/L (98-107); Globulin 2.5 g/dL (2.4-3.5); Glucose 151 mg/dL (70-105); Potassium 3.9 mmol/L (3.5-5.1); Protein, Total 6.8 g/dL (6.0-8.3); Sodium 140 mmol/L (136-145)
[2020-12-06] MEDS ORDERED: Dexamethasone 10 MG/ML VIAL ONE (17:05)
[2020-12-06 17:31] LABS: Bilirubin Negative (Negative); Blood, Urine Negative (Negative); Glucose, Urine (Dipstick) Negative (Negative); Ketone, Urine Negative (Negative); Leukocyte Negative (Negative); Nitrite Negative (Negative); Protein, Urine (Dipstick) Negative (Neg-Trace); Specific Gravity, Urine 1.025 (1.005-1.030); Urobilinogen 0.2 mg/dL (Less than 2); pH, Urine 5.5 (5.0-9.0)
[2020-12-06 17:33] LABS: Clarity Clear (Clear)
[2020-12-06 17:34] LABS: RBC/HPF 0-3 HPF (0-3); WBC/HPF 0-3 HPF (0-3)
[2020-12-06 17:36] LABS: Bacteria/HPF Rare-Few HPF (None Seen)
== END 2020-12-06 18:25 | disposition home or self-care (01) ==
LOC: ERS 14:40
DX: J44.1 Chronic obstructive pulmonary disease with (acute) exacerbation (principal); J18.9 Pneumonia, unspecified organism; I25.10 Atherosclerotic heart disease of native coronary artery without angina pectoris; E78.5 Hyperlipidemia, unspecified; I10 Essential (primary) hypertension; F17.210 Nicotine dependence, cigarettes, uncomplicated
CPT/HCPCS: 36415; 71045; 71275; 80053; 81003; 84484; 85025; 93005; 94640; 94760; 96374; J1100; Q9967